=== PATIENT | male | born 1950 ===

== ENCOUNTER 2024-05-19 06:21 | Day surgery (SDC) | payer BC, SELFPAY | END 2024-05-19 09:25 | disposition home or self-care (01) | LOC: GI 06:21 | PROVIDERS: ATTENDING PHYSICIAN Internal Medicine | DX: Z12.11 Encounter for screening for malignant neoplasm of colon (principal); D12.5 Benign neoplasm of sigmoid colon | CPT/HCPCS: 45380; 88305 ==